=== PATIENT | male | born 1950 | race Hispanic/Latino ===

== ENCOUNTER 2022-07-18 12:01 | Inpatient (IN) | payer MEDICARE, OTHER ==
[2022-07-18] MEDS ORDERED: traZODone 50 MG TAB PO SCH (22:00)
[2022-07-18] MEDS: traMADol 50 MG TAB PO PRN (23:15)
[2022-07-19] MEDS ORDERED: NON-FORMULARY EACH (Albuterol Sulfate [Proair Digihaler] 90 MCG Aer.Pw.Bas) IH SCH (08:30)
[2022-07-19] MEDS ORDERED: [UNRECOGNIZED DRUG - OTHER] PO SCH (08:30)
[2022-07-19] MEDS ORDERED: IBUPROFEN PO SCH (08:30)
[2022-07-19] MEDS ORDERED: ACETAMINOPHEN PO SCH (08:30)
--- NOTE | 2022-07-19 08:34 | Consultation ---
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 The patient had stated that he took 5-6 Advil trying to kill himself because of the pain that he is having and was not acting accepting help from anybody. The had brought him to the hospital. Nursing staff reports to me that he had a recent urinary tract infection and was treated with Rocephin and then 7 days of Keflex. And that the patient had refused to allow them to get urine sample or blood sample for lab purposes today. I did discuss with the patient he continues to complain of difficulty with movement of his neck area due to pain. He denies any dysphagia or diet aphasia however my understanding is that he has had some type of odynophagia., He denies any fever nausea vomiting at this time Past History Past Medical History: CAD, cancer (Prostate laryngeal), COPD, hypertension, hyperlipidemia, renal failure, other (Hypoalbuminemia) Past Surgical History: appendectomy, TURP, bowel surgery Social history: , full code Family history: no significant family history Medications and Allergies Allergies Allergy/AdvReac Type Severity Reaction Status Date / Time codeine Allergy Unknown Unverified 07/18/22 12:03 ketorolac [From Toradol] Allergy Unknown Unverified 07/18/22 12:03 Home Medications Medication Instructions Recorded Confirmed Last Taken Type Albuterol Sulfate [Proair 90 mcg IH Q4H 07/19/22 07/19/22 Unknown History Digihaler] Aspirin EC [Halfprin EC] 81 mg PO QDAY 07/19/22 07/19/22 Unknown History DULoxetine [Cymbalta] 60 mg PO QDAY 07/19/22 07/19/22 Unknown History Fluticasone/Umeclidin/Vilanter 1 each IH DAILY 07/19/22 07/19/22 Unknown History [Trelegy Ellipta 100-62.5-25] Ibuprofen/Acetaminophen [Advil 1 each PO UNK 07/19/22 07/19/22 Unknown History Dual Action 250Mg-125Mg] Ketoconazole 2% [Nizoral] 1 applicatio TP BID 07/19/22 07/19/22 Unknown History Metoprolol [Lopressor] 12.5 mg PO HS 07/19/22 07/19/22 Unknown History cephALEXin [Keflex] 500 mg PO Q6HR MDD for 8 days 07/19/22 07/19/22 07/18/22 13:51 History traMADoL [Ultram] 50 mg PO Q6HR PRN 07/19/22 07/19/22 Unknown History traZODone [Desyrel] 100 mg PO QHS 07/19/22 07/19/22 Unknown History Active Meds: Active Medications Aspirin (Aspirin Ec 81 Mg Tab) 81 mg PO QDAY [facility] Duloxetine HCl (Duloxetine 30 Mg Cap) 60 mg PO QDAY [facility] Ketoconazole (Ketoconazole 2% Cream 15 Gm) 1 applic TP BID [facility] Melatonin (Melatonin 5 Mg Tab) 5 mg PO QHS PRN PRN Reason: Sleep Metoprolol Tartrate (Metoprolol Tartrate 25 Mg Tab) 12.5 mg PO HS [facility] Miscellaneous Medication (Albuterol Sulfate [Proair Digihaler]) 90 mcg IH Q4H [facility] Miscellaneous Medication (Fluticasone/Umeclidin/Vilanter [Trelegy Ellipta 100-62.5-25]) 1 each IH DAILY [facility] Miscellaneous Medication (Ibuprofen/Acetaminophen [Advil Dual Action 250mg- 125mg]) 1 each PO UNK [facility] Tramadol HCl (Tramadol 50 Mg Tab) 50 mg PO Q6H PRN PRN Reason: Pain, Moderate (4-6) Last Admin: 07/18/22 23:15 Dose: 50 mg Trazodone HCl (Trazodone 50 Mg Tab) 50 mg PO QHS [facility] Last Admin: 07/18/22 23:15 Dose: 50 mg Trazodone HCl (Trazodone 50 Mg Tab) 100 mg PO QHS [facility] Review of Systems All systems: negative Constitutional: no fever, no chills, no sweats Ears, nose, mouth and throat: odynophagia Cardiovascular: no chest pain, no orthopnea, no palpitations, no edema, no syncope, no lightheadedness, no dyspnea on exertion Respiratory: no cough, no cough with sputum, no excessive sputum, no hemoptysis, no shortness of breath, no dyspnea on exertion, no wheezing, no pain, no pain on inspiration, no snoring Gastrointestinal: no abdominal pain, no nausea, no vomiting, no diarrhea, no constipation, no change in bowel habits, no melena, no early satiety Musculoskeletal: gait dysfunction, frequent falls, no neck stiffness, no low back pain, no leg numbness/tingling, no muscle cramps, no myalgias, no atrophy, no fractures, no loss of height Integumentary: no rash, no lesions, no acne, no hirsutism, no foot/leg ulcers Exam - Physical Exam Narrative exam: VITAL SIGNS: Reviewed. GENERAL: The patient appears normally developed, Vital signs as documented. HEAD: No signs of head trauma. EYES: Pupils are equal. Extraocular motions intact. EARS: Hearing grossly intact. MOUTH: Oropharynx is normal. NECK: No adenopathy, no JVD. CHEST: Chest with clear breath sounds bilaterally. No wheezes, rales, or rhonchi. CARDIAC: Regular rate and rhythm. S1 and S2, without murmurs, gallops, or rubs. VASCULAR: No Edema. Peripheral pulses normal and equal in all extremities. ABDOMEN: Soft, non tender and non distended. No rebound or guarding, and no masses palpated. Bowel Sounds normal. MUSCULOSKELETAL: Good range of motion of all major joints. Extremities without clubbing, cyanosis or edema. NEUROLOGIC EXAM: Alert and oriented x 3 No focal sensory or strength deficits. Speech normal. Follows commands. PSYCHIATRIC: Mood normal. SKIN: detail exam as documented in skin assessment - Constitutional Vitals: Temp Pulse Resp BP Pulse Ox 97.8 F 98 H 16 143/85 93 07/19/22 06:03 07/19/22 06:03 07/19/22 06:03 07/19/22 06:03 07/19/22 06:03 Assessment and Plan 72 year old male with hx prostrate and throat cancer with resultant chronic pain, COPD, [place] exposure, chronic hypoxic respiratory failure with intermittent oxygen use, gait abnormality uses a wheeled walker, CAD, PTSD and major depressive disorder who was admitted to our facility after initially presenting to an outside ER with report of suicidal ideation. The patient had stated that he took 5-6 Advil trying to kill himself because of the pain that he is having and was not acting accepting help from anybody. The had brought him to the hospital. Nursing staff reports to me that he had a recent urinary tract infection and was treated with Rocephin and then 7 days of Keflex. And that the patient had refused to allow them to get urine sample or blood sample for lab purposes today. I did discuss with the patient he continues to complain of difficulty with movement of his neck area due to pain. He denies any dysphagia or diet aphasia however my understanding is that he has had some type of odynophagia., He denies any fever nausea vomiting at this time Suicidal ideation Hypertension Odynophagia secondary to throat cancer Prostate cancer COPD Gait abnormality until seen by PT please use a wheelchair for him at this time. Chronic hypoxemia PTSD Major depression disorder Chronic pain syndrome [place] exposure Unilateral nephrectomy unsure which side Chronic pancreatitis Plan Will resume patient's medication Speech evaluation and treat PT OT evaluation and treat Pain control Monitor oxygen status periodically Intermittent labs Resume appropriate home medications monitor blood pressure control. Patient may benefit from Roxicodone liquid form for pain control if okay with the psych team. Thank you for allowing us take part in the care of your patient as an information become available more therapeutic or diagnostic recommendations may be presented. DVT and GI prophylaxis
[2022-07-19] MEDS: ASPIRIN EC 81 MG TAB PO SCH (09:59)
[2022-07-19] MEDS: traMADol 50 MG TAB PO PRN ×2 (09:59→20:05)
[2022-07-19] MEDS ORDERED: DULoxetine 30 MG CAP PO SCH (10:00)
[2022-07-19] MEDS ORDERED: NON-FORMULARY EACH (Fluticasone/Umeclidin/Vilanter [Trelegy Ellipta 100-62.5-25] 1 EACH Bl IH SCH (10:00)
--- NOTE | 2022-07-19 10:15 | History and Physical Report ---
GP History & Physical - History of Present Illness Date of admission: 07/18/22 Date of Examination: 07/19/22 Reason for Admission: Danger to self, Failure of Outpatient Treatment, Severe anxiety/depression History of Present Illness: The patient is a 72y/o male with hx of prostrate and throat cancer, chronic pain, COPD, [place] exposure, chronic hypoxic respiratory failure with intermittent oxygen use, PTSD and Bipolar Disorder. He was admitted to [facility] after his took pt to ER for suicide ideation by OD on 5-6 tablets of Advil and another bottle in reach with intent to take. During my evaluation of the patient he is calm and cooperative. The patient understands that he was admitted for suicidal thoughts, but he denies at present. He says "I have throat cancer so I thought I'd just do away with it all together." The patient does verbalize being depressed. He says he has a history of Bipolar Disorder, and at one point was taking thorazine. He says he "doesn't take any of it now, just THC." The patient denies any other illicit drug use or alcohol use. He denies hallucinations of any kind. The patient says he is with good family support. PAST PSYCHIATRIC HISTORY: Diagnoses: Bipolar Suicide attempts or Self-harm behavior: Denies Prior psychiatric hospitalizations: Denies Substance Abuse history: Denies Previous psychiatric medications tried: Thorazine Outpatient treatment: Denies PAST MEDICAL HISTORY: prostrate and throat cancer, chronic pain, COPD, [place] exposure, chronic hypoxic respiratory failure with intermittent oxygen use Family Psychiatric History: None reported or documented SOCIAL HISTORY Marital Status: Living Arrangements: lives with Spouse Employment Status: Disabled Access to guns/weapons: Denies Education: History of Abuse: Denies Legal History: Denies REVIEW OF SYSTEMS Constitutional: Negative for weight loss ENT: Negative for stridor Respiratory: Negative for cough or hemoptysis All other systems reviewed and are negative MENTAL STATUS EXAMINATION General Appearance and Behavior: Age appropriate, wearing appropriate clothes, cooperative, calm Cooperation: cooperative Psychomotor Behavior: Psychomotor normal Mood: Depressed Affect and affective range: congruent with stated affect Thought Process: goal directed Thought Content: Within reality Speech: Normal volume, Regular rate and rhythm Suicidal Ideation: Denies Homicidal Ideation: Denies Hallucination: Denies Delusions: Denies Impulse Control: Limited Insight and Judgment: Limited Memory: Limited Attention: Attentive Orientation: a/o Diagnoses: Bipolar Disorder Treatment Plan Patient admitted for inpatient psychiatric evaluation, medication adjustment and close monitoring The patient's behavior, mood, sleep and appetite will be closely monitored. Patient enrolled in individual and group therapeutic sessions and encouraged to attend. Patient provided with a safe and structured environment. Patient's physical health needs will be addressed by the Hospitalist. Hospitalist Consulted Labs including CBC, CMP, Lipid profile and Hemoglobin A1C levels ordered for baseline reference Social Assessment will be completed and the Artificial Log Machine Operator will work with patient and family to ensure a suitable and safe disposition Medication adjustment will be made as clinically indicated Continued home medications Usual Wellness Yarsanism/Preservation: - Start Trazodone 50 mg po QHS & 50 mg po QHS PRN between 10 PM & 2 AM for insomnia - Start Melatonin 5 mg po QHS to promote circadian rhythm The patient agreed on the treatment plan, understood the risk, benefit, alternative treatment, potential consequence of no treatment, and gave informed consent. Estimated days: 7 Post hospital care: primary care provider, psychiatric provider Case staffed with Dr. Olmos Legal Status: Voluntary Reaction to Hospitalization: Accepting Medications and Allergies Allergies Allergy/AdvReac Type Severity Reaction Status Date / Time codeine Allergy Unknown Unverified 07/18/22 12:03 ketorolac [From Toradol] Allergy Unknown Unverified 07/18/22 12:03 Home Medications Medication Instructions Recorded Confirmed Last Taken Type Albuterol Sulfate [Proair 90 mcg IH Q4H 07/19/22 07/19/22 Unknown History Digihaler] Aspirin EC [Halfprin EC] 81 mg PO QDAY 07/19/22 07/19/22 Unknown History DULoxetine [Cymbalta] 60 mg PO QDAY 07/19/22 07/19/22 Unknown History Fluticasone/Umeclidin/Vilanter 1 each IH DAILY 07/19/22 07/19/22 Unknown History [Trelegy Ellipta 100-62.5-25] Ibuprofen/Acetaminophen [Advil 1 each PO UNK 07/19/22 07/19/22 Unknown History Dual Action 250Mg-125Mg] Ketoconazole 2% [Nizoral] 1 applicatio TP BID 07/19/22 07/19/22 Unknown History Metoprolol [Lopressor] 12.5 mg PO HS 07/19/22 07/19/22 Unknown History cephALEXin [Keflex] 500 mg PO Q6HR MDD for 8 days 07/19/22 07/19/22 07/18/22 13:51 History traMADoL [Ultram] 50 mg PO Q6HR PRN 07/19/22 07/19/22 Unknown History traZODone [Desyrel] 100 mg PO QHS 07/19/22 07/19/22 Unknown History Active Meds: Active Medications Aspirin (Aspirin Ec 81 Mg Tab) 81 mg PO QDAY [facility] Last Admin: 07/19/22 09:59 Dose: 81 mg Duloxetine HCl (Duloxetine 30 Mg Cap) 60 mg PO QDAY [facility] Last Admin: 07/19/22 09:59 Dose: 60 mg Ketoconazole (Ketoconazole 2% Cream 15 Gm) 1 applic TP BID [facility] Melatonin (Melatonin 5 Mg Tab) 5 mg PO QHS PRN PRN Reason: Sleep Metoprolol Tartrate (Metoprolol Tartrate 25 Mg Tab) 12.5 mg PO HS [facility] Miscellaneous Medication (Albuterol Sulfate [Proair Digihaler]) 90 mcg IH Q4H [facility] Miscellaneous Medication (Fluticasone/Umeclidin/Vilanter [Trelegy Ellipta 100-62.5-25]) 1 each IH DAILY [facility] Tramadol HCl (Tramadol 50 Mg Tab) 50 mg PO Q6H PRN PRN Reason: Pain, Moderate (4-6) Last Admin: 07/19/22 09:59 Dose: 50 mg Trazodone HCl (Trazodone 50 Mg Tab) 100 mg PO QHS [facility] Results - Results Labs/Vitals: Last Vital Signs Temp 97.8 F 07/19/22 06:03 Pulse 98 H 07/19/22 06:03 Resp 16 07/19/22 06:03 BP 143/85 07/19/22 06:03 Pulse Ox 93 07/19/22 06:03 Physical Examination - Constitutional Vitals: Vital Signs Temp Pulse Resp BP Pulse Ox 97.8 F 98 H 16 143/85 93 07/19/22 06:03 07/19/22 06:03 07/19/22 06:03 07/19/22 06:03 07/19/22 06:03 Temperature -Last 24 Hours Temperature 97.8 F Mental Status Exam - Vital signs Last Vital Signs Temp 97.8 F 07/19/22 06:03 Pulse 98 H 07/19/22 06:03 Resp 16 07/19/22 06:03 BP 143/85 07/19/22 06:03 Pulse Ox 93 07/19/22 06:03 Physician Certification - Certification Statement Physician Certification Statement: This is an acknowledgement statement that AUDREY CHAVEZ is a 72 year old M who requires inpatient psychiatric admission for treatment which could reasonably be expected to improve the patient's condition for Estimated period of time patient will need to remain in the hospital: [ ] Plan for post-hospital care: [ ]
[2022-07-19] MEDS ORDERED: ALBUTEROL 8.5 GM MDI INHALATION IH SCH (11:00)
[2022-07-19] MEDS: KETOCONAZOLE 2% CREAM 15 GM TP SCH ×2 (15:03→21:18)
[2022-07-19] MEDS: ALBUTEROL 2.5 MG/3 ML NEBU IH SCH ×2 (21:00→21:01)
[2022-07-19] MEDS: traZODone 50 MG TAB PO SCH (21:14)
[2022-07-19] MEDS ORDERED: METOPROLOL TARTRATE 25 MG TAB PO SCH (22:00)
[2022-07-20] MEDS: traMADol 50 MG TAB PO PRN ×3 (06:23→20:59)
[2022-07-20] MEDS: ALBUTEROL 2.5 MG/3 ML NEBU IH SCH ×4 (06:23→20:35)
--- NOTE | 2022-07-20 09:40 | Progress Note ---
Subjective Date of service: 07/20/22 Principal diagnosis: Bipolar Disorder Subjective Comment: The patient was seen today. He says he is not doing good because he's in a lot of pain. The patient denies SI/HI or hallucinations. The patient says he no longer feels like ending his life, but does endorse depression. REVIEW OF SYSTEMS Constitutional: Negative for weight loss ENT: Negative for stridor Respiratory: Negative for cough or hemoptysis All other systems reviewed and are negative MENTAL STATUS EXAMINATION General Appearance and Behavior: Age appropriate, wearing appropriate clothes, cooperative, calm Cooperation: cooperative Psychomotor Behavior: Psychomotor normal Mood: Depressed Affect and affective range: congruent with stated affect Thought Process: goal directed Thought Content: Within reality Speech: Normal volume, Regular rate and rhythm Suicidal Ideation: Denies Homicidal Ideation: Denies Hallucination: Denies Delusions: Denies Impulse Control: Limited Insight and Judgment: Limited Memory: Limited Attention: Attentive Orientation: a/o Diagnoses: Bipolar Disorder Treatment Plan Patient admitted for inpatient psychiatric evaluation, medication adjustment and close monitoring The patient's behavior, mood, sleep and appetite will be closely monitored. Patient enrolled in individual and group therapeutic sessions and encouraged to attend. Patient provided with a safe and structured environment. Patient's physical health needs will be addressed by the Hospitalist. Hospitalist Consulted Labs including CBC, CMP, Lipid profile and Hemoglobin A1C levels ordered for baseline reference Social Assessment will be completed and the Poultry Hatchery Man will work with patient and family to ensure a suitable and safe disposition Medication adjustment will be made as clinically indicated Increase Cymbalta 120mgpo daily Increase Tramadol 100mg po q6h prn pain Start Tylenol 650mg po q4h prn pain Usual Wellness Worship/Preservation: - Start Trazodone 50 mg po QHS & 50 mg po QHS PRN between 10 PM & 2 AM for insomnia - Start Melatonin 5 mg po QHS to promote circadian rhythm The patient agreed on the treatment plan, understood the risk, benefit, alternative treatment, potential consequence of no treatment, and gave informed consent. Estimated days: 7 Post hospital care: primary care provider, psychiatric provider Case staffed with Dr. Olmos Medications and Allergies Allergies Allergy/AdvReac Type Severity Reaction Status Date / Time codeine Allergy Unknown Unverified 07/18/22 12:03 ketorolac [From Toradol] Allergy Unknown Unverified 07/18/22 12:03 Home Medications Medication Instructions Recorded Confirmed Last Taken Type Albuterol Sulfate [Proair 90 mcg IH Q4H 07/19/22 07/19/22 Unknown History Digihaler] Aspirin EC [Halfprin EC] 81 mg PO QDAY 07/19/22 07/19/22 Unknown History DULoxetine [Cymbalta] 60 mg PO QDAY 07/19/22 07/19/22 Unknown History Fluticasone/Umeclidin/Vilanter 1 each IH DAILY 07/19/22 07/19/22 Unknown History [Trelegy Ellipta 100-62.5-25] Ibuprofen/Acetaminophen [Advil 1 each PO UNK 07/19/22 07/19/22 Unknown History Dual Action 250Mg-125Mg] Ketoconazole 2% [Nizoral] 1 applicatio TP BID 07/19/22 07/19/22 Unknown History Metoprolol [Lopressor] 12.5 mg PO HS 07/19/22 07/19/22 Unknown History cephALEXin [Keflex] 500 mg PO Q6HR MDD for 8 days 07/19/22 07/19/22 07/18/22 13:51 History traMADoL [Ultram] 50 mg PO Q6HR PRN 07/19/22 07/19/22 Unknown History traZODone [Desyrel] 100 mg PO QHS 07/19/22 07/19/22 Unknown History Active Meds: Active Medications Albuterol (Albuterol 2.5 Mg/3 Ml Nebu) 2.5 mg IH TIDRT [facility] Aspirin (Aspirin Ec 81 Mg Tab) 81 mg PO QDAY [facility] Last Admin: 07/19/22 09:59 Dose: 81 mg Duloxetine HCl (Duloxetine 30 Mg Cap) 60 mg PO QDAY [facility] Last Admin: 07/19/22 09:59 Dose: 60 mg Ketoconazole (Ketoconazole 2% Cream 15 Gm) 1 applic TP BID [facility] Last Admin: 07/19/22 21:18 Dose: 1 applic Melatonin (Melatonin 5 Mg Tab) 5 mg PO QHS PRN PRN Reason: Sleep Metoprolol Tartrate (Metoprolol Tartrate 25 Mg Tab) 25 mg PO BID [facility] Miscellaneous Medication (Fluticasone/Umeclidin/Vilanter [Trelegy Ellipta 100-62.5-25]) 1 each IH DAILY [facility] Tramadol HCl (Tramadol 50 Mg Tab) 50 mg PO Q6H PRN PRN Reason: Pain, Moderate (4-6) Last Admin: 07/20/22 06:23 Dose: 50 mg Trazodone HCl (Trazodone 50 Mg Tab) 100 mg PO QHS [facility] Last Admin: 07/19/22 21:14 Dose: 100 mg Results - Results Labs/Vitals: Last Vital Signs Temp 99.3 F 07/19/22 22:00 Pulse 120 H 07/19/22 22:00 Resp 18 07/20/22 06:23 BP 161/87 07/19/22 22:00 Pulse Ox 98 07/20/22 00:00
[2022-07-20] MEDS ORDERED: ACETAMINOPHEN 325 MG TAB PO PRN (10:00)
--- NOTE | 2022-07-20 10:04 | Progress Note ---
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 The patient had stated that he took 5-6 Advil trying to kill himself because of the pain that he is having and was not acting accepting help from anybody. The had brought him to the hospital. Nursing staff reports to me that he had a recent urinary tract infection and was treated with Rocephin and then 7 days of Keflex. And th at the patient had refused to allow them to get urine sample or blood sample for lab purposes today. I did discuss with the patient he continues to complain of difficulty with movement of his neck area due to pain. He denies any dysphagia or diet aphasia however my understanding is that he has had some type of odynophagia., He denies any fever nausea vomiting at this time Suicidal ideation Hypertension Odynophagia secondary to throat cancer Prostate cancer COPD Gait abnormality until seen by PT please use a wheelchair for him at this time. 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 Will increase metoprolol to 25 mg p.o. twice daily. Will resume patient's medication Speech evaluation and treat PT OT evaluation and treat Pain control Monitor oxygen status periodically Intermittent labs Resume appropriate home medications monitor blood pressure control. Patient may benefit from Roxicodone liquid form for pain control if okay with the psych team. Thank you for allowing us take part in the care of your patient as an information become available more therapeutic or diagnostic recommendations may be presented. DVT and GI prophylaxis History Interval history: Patient seen and examined no new complaints at this time. Hospitalist Physical - Physical exam Narrative exam: VITAL SIGNS: Reviewed. GENERAL: The patient appears normally developed, Vital signs as documented. HEAD: No signs of head trauma. EYES: Pupils are equal. Extraocular motions intact. EARS: Hearing grossly intact. MOUTH: Oropharynx is normal. NECK: No adenopathy, no JVD. CHEST: Chest with clear breath sounds bilaterally. No wheezes, rales, or rhonchi. CARDIAC: Regular rate and rhythm. S1 and S2, without murmurs, gallops, or rubs. VASCULAR: No Edema. Peripheral pulses normal and equal in all extremities. ABDOMEN: Soft, non tender and non distended. No rebound or guarding, and no masses palpated. Bowel Sounds normal. MUSCULOSKELETAL: Good range of motion of all major joints. Extremities without clubbing, cyanosis or edema. NEUROLOGIC EXAM: Alert and oriented x 3 No focal sensory or strength deficits. Speech normal. Follows commands. PSYCHIATRIC: Mood normal. SKIN: detail exam as documented in skin assessment - Constitutional Vitals: Temp Pulse Resp BP Pulse Ox 99.3 F 120 H 18 161/87 98 07/19/22 22:00 07/19/22 22:00 07/20/22 06:23 07/19/22 22:00 07/20/22 00:00 Results Ramirez/IV: Voiding Method Toilet Active Medications - Current Medications Current Medications: Generic Name Dose Route Start Last Admin Trade Name Freq PRN Reason Stop Dose Admin Acetaminophen 650 mg 07/20/22 10:00 Acetaminophen 325 Mg Tab PO Q4H PRN Pain, Mild (1-3) Albuterol 2.5 mg 07/20/22 08:00 Albuterol 2.5 Mg/3 Ml Nebu IH TIDRT [facility] Aspirin 81 mg 07/19/22 10:00 07/19/22 09:59 Aspirin Ec 81 Mg Tab PO 81 mg QDAY [facility] Administration Duloxetine HCl 120 mg 07/20/22 10:00 Duloxetine 30 Mg Cap PO QDAY [facility] Ketoconazole 1 applic 07/19/22 10:00 07/19/22 21:18 Ketoconazole 2% Cream 15 Gm TP 1 applic BID [facility] Administration Melatonin 5 mg 07/18/22 22:00 Melatonin 5 Mg Tab PO QHS PRN Sleep Metoprolol Tartrate 25 mg 07/20/22 10:00 Metoprolol Tartrate 25 Mg Tab PO BID [facility] Miscellaneous Medication 1 each 07/19/22 10:00 Fluticasone/Umeclidin/Vilanter [Trelegy Ellipta 100-62.5-25] IH DAILY [facility] Tramadol HCl 100 mg 07/20/22 10:00 Tramadol 50 Mg Tab PO Q6H PRN Pain, Moderate (4-6) Trazodone HCl 100 mg 07/19/22 22:00 07/19/22 21:14 Trazodone 50 Mg Tab PO 100 mg QHS [facility] Administration
[2022-07-20] MEDS: ASPIRIN EC 81 MG TAB PO SCH (10:36)
[2022-07-20] MEDS: DULoxetine 30 MG CAP PO SCH (10:37)
[2022-07-20] MEDS: KETOCONAZOLE 2% CREAM 15 GM TP SCH ×2 (10:38→21:01)
[2022-07-20] MEDS: METOPROLOL TARTRATE 25 MG TAB PO SCH ×2 (10:38→21:01)
[2022-07-20] MEDS: cephALEXin 500 MG CAP PO SCH ×2 (14:28→18:20)
[2022-07-20] MEDS: traZODone 50 MG TAB PO SCH (21:00)
[2022-07-20] MEDS: cephALEXin 250 MG CAP PO SCH (23:31)
[2022-07-21] MEDS: cephALEXin 250 MG CAP PO SCH ×4 (05:41→23:39)
[2022-07-21] MEDS: DULoxetine 30 MG CAP PO SCH (09:29)
[2022-07-21] MEDS: ASPIRIN EC 81 MG TAB PO SCH (09:29)
[2022-07-21] MEDS: METOPROLOL TARTRATE 25 MG TAB PO SCH ×2 (09:29→21:05)
[2022-07-21] MEDS: KETOCONAZOLE 2% CREAM 15 GM TP SCH ×3 (09:30→21:34)
[2022-07-21] MEDS: ALBUTEROL 2.5 MG/3 ML NEBU IH SCH ×3 (09:47→23:15)
--- NOTE | 2022-07-21 11:00 | Progress Note ---
Subjective Date of service: 07/21/22 Principal diagnosis: Bipolar Disorder Subjective Comment: The patient was seen today. He says he is dong better and ready to go home. The patent denies SI/HI, but was admitted for an OD in an attempt to end his life. He denies hallucinations. Will continue to treat and monitor REVIEW OF SYSTEMS Constitutional: Negative for weight loss ENT: Negative for stridor Respiratory: Negative for cough or hemoptysis All other systems reviewed and are negative MENTAL STATUS EXAMINATION General Appearance and Behavior: Age appropriate, wearing appropriate clothes, cooperative, calm Cooperation: cooperative Psychomotor Behavior: Psychomotor normal Mood: Depressed Affect and affective range: congruent with stated affect Thought Process: goal directed Thought Content: Within reality Speech: Normal volume, Regular rate and rhythm Suicidal Ideation: Denies Homicidal Ideation: Denies Hallucination: Denies Delusions: Denies Impulse Control: Limited Insight and Judgment: Limited Memory: Limited Attention: Attentive Orientation: a/o Diagnoses: Bipolar Disorder Treatment Plan Patient admitted for inpatient psychiatric evaluation, medication adjustment a nd close monitoring The patient's behavior, mood, sleep and appetite will be closely monitored. Patient enrolled in individual and group therapeutic sessions and encouraged to attend. Patient provided with a safe and structured environment. Patient's physical health needs will be addressed by the Hospitalist. Hospitalist Consulted Labs including CBC, CMP, Lipid profile and Hemoglobin A1C levels ordered for baseline reference Social Assessment will be completed and the Vacuum Bottle Assembler will work with patient and family to ensure a suitable and safe disposition Medication adjustment will be made as clinically indicated Cymbalta 120mgpo daily Usual Wellness [facility]/Preservation: - Start Trazodone 50 mg po QHS & 50 mg po QHS PRN between 10 PM & 2 AM for ins omnia - Start Melatonin 5 mg po QHS to promote circadian rhythm The patient agreed on the treatment plan, understood the risk, benefit, alternative treatment, potential consequence of no treatment, and gave informed consent. Estimated days: 7 Post hospital care: primary care provider, psychiatric provider Case staffed with Dr. Olmos Medications and Allergies Allergies Allergy/AdvReac Type Severity Reaction Status Date / Time codeine Allergy Unknown Unverified 07/18/22 12:03 ketorolac [From Toradol] Allergy Unknown Unverified 07/18/22 12:03 Home Medications Medication Instructions Recorded Confirmed Last Taken Type Albuterol Sulfate [Proair 90 mcg IH Q4H 07/19/22 07/19/22 Unknown History Digihaler] Aspirin EC [Halfprin EC] 81 mg PO QDAY 07/19/22 07/19/22 Unknown History DULoxetine [Cymbalta] 60 mg PO QDAY 07/19/22 07/19/22 Unknown History Fluticasone/Umeclidin/Vilanter 1 each IH DAILY 07/19/22 07/19/22 Unknown History [Trelegy Ellipta 100-62.5-25] Ibuprofen/Acetaminophen [Advil 1 each PO UNK 07/19/22 07/19/22 Unknown History Dual Action 250Mg-125Mg] Ketoconazole 2% [Nizoral] 1 applicatio TP BID 07/19/22 07/19/22 Unknown History Metoprolol [Lopressor] 12.5 mg PO HS 07/19/22 07/19/22 Unknown History cephALEXin [Keflex] 500 mg PO Q6HR MDD for 8 days 07/19/22 07/19/22 07/18/22 13:51 History traMADoL [Ultram] 50 mg PO Q6HR PRN 07/19/22 07/19/22 Unknown History traZODone [Desyrel] 100 mg PO QHS 07/19/22 07/19/22 Unknown History Active Meds: Active Medications Acetaminophen (Acetaminophen 325 Mg Tab) 650 mg PO Q4H PRN PRN Reason: Pain, Mild (1-3) Albuterol (Albuterol 2.5 Mg/3 Ml Nebu) 2.5 mg IH TIDRT [facility] Last Admin: 07/21/22 09:47 Dose: Not Given Aspirin (Aspirin Ec 81 Mg Tab) 81 mg PO QDAY [facility] Last Admin: 07/21/22 09:29 Dose: 81 mg Cephalexin (Cephalexin 250 Mg Cap) 500 mg PO Q6HR [facility] Stop: 07/27/22 18:01 Last Admin: 07/21/22 05:41 Dose: 500 mg Duloxetine HCl (Duloxetine 30 Mg Cap) 120 mg PO QDAY [facility] Last Admin: 07/21/22 09:29 Dose: 120 mg Ketoconazole (Ketoconazole 2% Cream 15 Gm) 1 applic TP BID [facility] Last Admin: 07/21/22 09:30 Dose: 1 applic Melatonin (Melatonin 5 Mg Tab) 5 mg PO QHS PRN PRN Reason: Sleep Metoprolol Tartrate (Metoprolol Tartrate 25 Mg Tab) 25 mg PO BID [facility] Last Admin: 07/21/22 09:29 Dose: 25 mg Miscellaneous Medication (Fluticasone/Umeclidin/Vilanter [Trelegy Ellipta 100-62.5-25]) 1 each IH DAILY [facility] Tramadol HCl (Tramadol 50 Mg Tab) 100 mg PO Q6H PRN PRN Reason: Pain, Moderate (4-6) Last Admin: 07/20/22 20:59 Dose: 100 mg Trazodone HCl (Trazodone 50 Mg Tab) 100 mg PO QHS [facility] Last Admin: 07/20/22 21:00 Dose: 100 mg Results - Results Labs/Vitals: Laboratory Last Values POC Glucose 202 mg/dL (70-105) H 07/20/22 17:08 Last Vital Signs Temp 98.5 F 07/21/22 06:19 Pulse 89 07/21/22 09:29 Resp 17 07/21/22 06:19 BP 121/67 07/21/22 09:29 Pulse Ox 94 07/21/22 09:28
[2022-07-21] MEDS: traZODone 50 MG TAB PO SCH (21:05)
[2022-07-21] MEDS: traMADol 50 MG TAB PO PRN (21:29)
[2022-07-22] MEDS: MELATONIN 5 MG TAB PO PRN (01:13)
[2022-07-22] MEDS: cephALEXin 250 MG CAP PO SCH ×3 (05:19→17:10)
[2022-07-22] MEDS: ALBUTEROL 2.5 MG/3 ML NEBU IH SCH ×2 (09:01→14:27)
[2022-07-22] MEDS: METOPROLOL TARTRATE 25 MG TAB PO SCH ×2 (09:17→21:23)
[2022-07-22] MEDS: KETOCONAZOLE 2% CREAM 15 GM TP SCH ×2 (09:17→21:23)
[2022-07-22] MEDS: ASPIRIN EC 81 MG TAB PO SCH (09:17)
[2022-07-22] MEDS: DULoxetine 30 MG CAP PO SCH (09:17)
--- NOTE | 2022-07-22 11:37 | Progress Note ---
Subjective Date of service: 07/22/22 Principal diagnosis: Bipolar Disorder Subjective Comment: The patient was seen today. He is in his room. He says he feels "great today." He denies SI/HHI or hallucinations. The patient will go home tomorrow once the social work nurse has his outpatient resources in place, if uneventful night Will continue to treat and monitor REVIEW OF SYSTEMS Constitutional: Negative for weight loss ENT: Negative for stridor Respiratory: Negative for cough or hemoptysis All other systems reviewed and are negative MENTAL STATUS EXAMINATION General Appearance and Behavior: Age appropriate, wearing appropriate clothes, cooperative, calm Cooperation: cooperative Psychomotor Behavior: Psychomotor normal Mood: Depressed Affect and affective range: congruent with stated affect Thought Process: goal directed Thought Content: Within reality Speech: Normal volume, Regular rate and rhythm Suicidal Ideation: Denies Homicidal Ideation: Denies Hallucination: Denies Delusions: Denies Impulse Control: Limited Insight and Judgment: Limited Memory: Limited Attention: Attentive Orientation: a/o Diagnoses: Bipolar Disorder Treatment Plan Patient admitted for inpatient psychiatric evaluation, medication adjustment and close monitoring The patient's behavior, mood, sleep and appetite will be closely monitored. Patient enrolled in individual and group therapeutic sessions and encouraged to attend. Patient provided with a safe and structured environment. Patient's physical health needs will be addressed by the Hospitalist. Hospitalist Consulted Labs including CBC, CMP, Lipid profile and Hemoglobin A1C levels ordered for baseline reference Social Assessment will be completed and the Custody Officer will work with patient and family to ensure a suitable and safe disposition Medication adjustment will be made as clinically indicated Cymbalta 120mgpo daily Usual Wellness [facility]/Preservation: - Start Trazodone 50 mg po QHS & 50 mg po QHS PRN between 10 PM & 2 AM for insomnia - Start Melatonin 5 mg po QHS to promote circadian rhythm The patient agreed on the treatment plan, understood the risk, benefit, alternative treatment, potential consequence of no treatment, and gave informed consent. Estimated days: 7 Post hospital care: primary care provider, psychiatric provider Case staffed with Dr. Olmos Medications and Allergies Allergies Allergy/AdvReac Type Severity Reaction Status Date / Time codeine Allergy Unknown Unverified 07/18/22 12:03 ketorolac [From Toradol] Allergy Unknown Unverified 07/18/22 12:03 Home Medications Medication Instructions Recorded Confirmed Last Taken Type Albuterol Sulfate [Proair 90 mcg IH Q4H 07/19/22 07/19/22 Unknown History Digihaler] Aspirin EC [Halfprin EC] 81 mg PO QDAY 07/19/22 07/19/22 Unknown History DULoxetine [Cymbalta] 60 mg PO QDAY 07/19/22 07/19/22 Unknown History Fluticasone/Umeclidin/Vilanter 1 each IH DAILY 07/19/22 07/19/22 Unknown History [Trelegy Ellipta 100-62.5-25] Ibuprofen/Acetaminophen [Advil 1 each PO UNK 07/19/22 07/19/22 Unknown History Dual Action 250Mg-125Mg] Ketoconazole 2% [Nizoral] 1 applicatio TP BID 07/19/22 07/19/22 Unknown History Metoprolol [Lopressor] 12.5 mg PO HS 07/19/22 07/19/22 Unknown History cephALEXin [Keflex] 500 mg PO Q6HR MDD for 8 days 07/19/22 07/19/22 07/18/22 13:51 History traMADoL [Ultram] 50 mg PO Q6HR PRN 07/19/22 07/19/22 Unknown History traZODone [Desyrel] 100 mg PO QHS 07/19/22 07/19/22 Unknown History Active Meds: Active Medications Acetaminophen (Acetaminophen 325 Mg Tab) 650 mg PO Q4H PRN PRN Reason: Pain, Mild (1-3) Albuterol (Albuterol 2.5 Mg/3 Ml Nebu) 2.5 mg IH TIDRT [facility] Last Admin: 07/22/22 09:01 Dose: Not Given Aspirin (Aspirin Ec 81 Mg Tab) 81 mg PO QDAY [facility] Last Admin: 07/22/22 09:17 Dose: 81 mg Cephalexin (Cephalexin 250 Mg Cap) 500 mg PO Q6HR [facility] Stop: 07/27/22 18:01 Last Admin: 07/22/22 05:19 Dose: 500 mg Duloxetine HCl (Duloxetine 30 Mg Cap) 120 mg PO QDAY [facility] Last Admin: 07/22/22 09:17 Dose: 120 mg Ketoconazole (Ketoconazole 2% Cream 15 Gm) 1 applic TP BID [facility] Last Admin: 07/22/22 09:17 Dose: 1 applic Melatonin (Melatonin 5 Mg Tab) 5 mg PO QHS PRN PRN Reason: Sleep Last Admin: 07/22/22 01:13 Dose: 5 mg Metoprolol Tartrate (Metoprolol Tartrate 25 Mg Tab) 25 mg PO BID [facility] Last Admin: 07/22/22 09:17 Dose: 25 mg Miscellaneous Medication (Fluticasone/Umeclidin/Vilanter [Trelegy Ellipta 100-62.5-25]) 1 each IH DAILY [facility] Tramadol HCl (Tramadol 50 Mg Tab) 100 mg PO Q6H PRN PRN Reason: Pain, Moderate (4-6) Last Admin: 07/21/22 21:29 Dose: 100 mg Trazodone HCl (Trazodone 50 Mg Tab) 100 mg PO QHS [facility] Last Admin: 07/21/22 21:05 Dose: 100 mg Results - Results Labs/Vitals: Laboratory Last Values POC Glucose 130 mg/dL (70-105) H 07/22/22 06:39 Last Vital Signs Temp 98.2 F 07/22/22 05:39 Pulse 68 07/22/22 09:17 Resp 20 07/22/22 05:39 BP 127/59 07/22/22 09:17 Pulse Ox 94 07/22/22 05:39
[2022-07-22] MEDS: traZODone 50 MG TAB PO SCH (21:22)
[2022-07-22] MEDS: traMADol 50 MG TAB PO PRN (21:34)
[2022-07-23] MEDS: cephALEXin 250 MG CAP PO SCH ×5 (00:45→23:45)
[2022-07-23] MEDS: MELATONIN 5 MG TAB PO PRN (02:15)
[2022-07-23] MEDS: ALBUTEROL 2.5 MG/3 ML NEBU IH SCH ×4 (08:05→20:07)
[2022-07-23] MEDS: DULoxetine 30 MG CAP PO SCH (09:13)
[2022-07-23] MEDS: ASPIRIN EC 81 MG TAB PO SCH (09:13)
[2022-07-23] MEDS: METOPROLOL TARTRATE 25 MG TAB PO SCH ×2 (09:13→22:03)
[2022-07-23] MEDS: KETOCONAZOLE 2% CREAM 15 GM TP SCH ×2 (09:14→22:02)
--- NOTE | 2022-07-23 10:46 | Progress Note ---
Assessment and Plan - Patient Problems (1) Vascular dementia with behavioral disturbance Status: Acute Plan to address problem: Verbal prompting, verbal redirection, benzodiazepine therapy as clinical indicated (2) Cerebral atherosclerosis Status: Acute Plan to address problem: Risk factor reduction, antiplatelet therapy, supportive care (3) COPD (chronic obstructive pulmonary disease) Status: Acute Plan to address problem: No acute exacerbation at this time, continue medical management, supplemental oxygen as clinically indicated. History Interval history: 72 year old male with hx prostrate and throat cancer with resultant chronic pain, COPD, Agent Cotter exposure, chronic hypoxic respiratory failure with intermittent oxygen use, gait abnormality uses a wheeled walker, CAD, PTSD admitted [facility] for psychiatric stabilization. Patient seen and evaluated recreation room. No reported nursing events. Patient denies pain. Patient jenna at baseline level of cognition and function Hospitalist Physical - Constitutional Vitals: Temp Pulse Resp BP Pulse Ox 97.8 F 84 18 120/68 94 07/22/22 17:17 07/23/22 10:00 07/23/22 10:00 07/23/22 09:13 07/22/22 17:17 General appearance: Present: no acute distress - EENT Eyes: Present: PERRL ENT: hearing intact - Neck Neck: Present: supple - Respiratory Respiratory effort: normal Respiratory: bilateral: diminished - Cardiovascular Rhythm: regular Heart Sounds: Present: S1 & S2 - Extremities Extremities: no ischemia Peripheral Pulses: within normal limits - Abdominal General gastrointestinal: soft, non-tender, non-distended - Integumentary Integumentary: Present: clear, dry - Psychiatric Psychiatric: cooperative - Neurologic Neurologic: CNII-XII intact Results - Labs Labs: Laboratory Last Values POC Glucose 130 mg/dL (70-105) H 07/22/22 06:39 Ramirez/IV: Voiding Method Toilet Active Medications - Current Medications Current Medications: Generic Name Dose Route Start Last Admin Trade Name Freq PRN Reason Stop Dose Admin Acetaminophen 650 mg 07/20/22 10:00 Acetaminophen 325 Mg Tab PO Q4H PRN Pain, Mild (1-3) Albuterol 2.5 mg 07/20/22 08:00 07/23/22 10:05 Albuterol 2.5 Mg/3 Ml Nebu IH 2.5 mg TIDRT [facility] Administration Aspirin 81 mg 07/19/22 10:00 07/23/22 09:13 Aspirin Ec 81 Mg Tab PO 81 mg QDAY [facility] Administration Cephalexin 500 mg 07/21/22 00:00 07/23/22 06:28 Cephalexin 250 Mg Cap PO 07/27/22 18:01 500 mg Q6HR [facility] Administration Duloxetine HCl 120 mg 07/20/22 10:00 07/23/22 09:13 Duloxetine 30 Mg Cap PO 120 mg QDAY [facility] Administration Ketoconazole 1 applic 07/19/22 10:00 07/23/22 09:14 Ketoconazole 2% Cream 15 Gm TP 1 applic BID [facility]AN Administration Melatonin 5 mg 07/18/22 22:00 07/23/22 02:15 Melatonin 5 Mg Tab PO 5 mg QHS PRN Administration Sleep Metoprolol Tartrate 25 mg 07/20/22 10:00 07/23/22 09:13 Metoprolol Tartrate 25 Mg Tab PO 25 mg BID [facility] Administration Miscellaneous Medication 1 each 07/19/22 10:00 Fluticasone/Umeclidin/Vilanter [Trelegy Ellipta 100-62.5-25] IH DAILY [facility]AN Tramadol HCl 100 mg 07/20/22 10:00 07/22/22 21:34 Tramadol 50 Mg Tab PO 100 mg Q6H PRN Administration Pain, Moderate (4-6) Trazodone HCl 100 mg 07/19/22 22:00 07/22/22 21:22 Trazodone 50 Mg Tab PO 100 mg QHS [facility] Administration
--- NOTE | 2022-07-23 12:35 | Progress Note ---
Subjective Date of service: 07/23/22 Principal diagnosis: Bipolar Disorder Subjective Comment: The patient was seen today. He is in his room sleeping. He easily arouses. The patient says he feels "great." He denies SI/HI or hallucinations. The patient will discharge home tomorrow. The SW was unable to reach his today. REVIEW OF SYSTEMS Constitutional: Negative for weight loss ENT: Negative for stridor Respiratory: Negative for cough or hemoptysis All other systems reviewed and are negative MENTAL STATUS EXAMINATION General Appearance and Behavior: Age appropriate, wearing appropriate clothes, cooperative, calm Cooperation: cooperative Psychomotor Behavior: Psychomotor normal Mood: Depressed Affect and affective range: congruent with stated affect Thought Process: goal directed Thought Content: Within reality Speech: Normal volume, Regular rate and rhythm Suicidal Ideation: Denies Homicidal Ideation: Denies Hallucination: Denies Delusions: Denies Impulse Control: Limited Insight and Judgment: Limited Memory: Limited Attention: Attentive Orientation: a/o Diagnoses: Bipolar Disorder Treatment Plan Patient admitted for inpatient psychiatric evaluation, medication adjustment and close monitoring The patient's behavior, mood, sleep and appetite will be closely monitored. Patient enrolled in individual and group therapeutic sessions and encouraged to attend. Patient provided with a safe and structured environment. Patient's physical health needs will be addressed by the Hospitalist. Hospitalist Consulted Labs including CBC, CMP, Lipid profile and Hemoglobin A1C levels ordered for baseline reference Social Assessment will be completed and the Senior Staff Accountant will work with patient and family to ensure a suitable and safe disposition Medication adjustment will be made as clinically indicated Cymbalta 120mgpo daily Usual Wellness [facility]omin[facility]/Preservation: - Start Trazodone 50 mg po QHS & 50 mg po QHS PRN between 10 PM & 2 AM for insomnia - Start Melatonin 5 mg po QHS to promote circadian rhythm The patient agreed on the treatment plan, understood the risk, benefit, alternative treatment, potential consequence of no treatment, and gave informed consent. Estimated days: 7 Post hospital care: primary care provider, psychiatric provider Case staffed with Dr. Olmos Medications and Allergies Allergies Allergy/AdvReac Type Severity Reaction Status Date / Time codeine Allergy Unknown Unverified 07/18/22 12:03 ketorolac [From Toradol] Allergy Unknown Unverified 07/18/22 12:03 Home Medications Medication Instructions Recorded Confirmed Last Taken Type Albuterol Sulfate [Proair 90 mcg IH Q4H 07/19/22 07/19/22 Unknown History Digihaler] Aspirin EC [Halfprin EC] 81 mg PO QDAY 07/19/22 07/19/22 Unknown History DULoxetine [Cymbalta] 60 mg PO QDAY 07/19/22 07/19/22 Unknown History Fluticasone/Umeclidin/Vilanter 1 each IH DAILY 07/19/22 07/19/22 Unknown History [Trelegy Ellipta 100-62.5-25] Ibuprofen/Acetaminophen [Advil 1 each PO UNK 07/19/22 07/19/22 Unknown History Dual Action 250Mg-125Mg] Ketoconazole 2% [Nizoral] 1 applicatio TP BID 07/19/22 07/19/22 Unknown History Metoprolol [Lopressor] 12.5 mg PO HS 07/19/22 07/19/22 Unknown History cephALEXin [Keflex] 500 mg PO Q6HR MDD for 8 days 07/19/22 07/19/22 07/18/22 13:51 History traMADoL [Ultram] 50 mg PO Q6HR PRN 07/19/22 07/19/22 Unknown History traZODone [Desyrel] 100 mg PO QHS 07/19/22 07/19/22 Unknown History Active Meds: Active Medications Acetaminophen (Acetaminophen 325 Mg Tab) 650 mg PO Q4H PRN PRN Reason: Pain, Mild (1-3) Albuterol (Albuterol 2.5 Mg/3 Ml Nebu) 2.5 mg IH TIDRT [facility] Last Admin: 07/23/22 10:05 Dose: 2.5 mg Aspirin (Aspirin Ec 81 Mg Tab) 81 mg PO QDAY [facility] Last Admin: 07/23/22 09:13 Dose: 81 mg Cephalexin (Cephalexin 250 Mg Cap) 500 mg PO Q6HR [facility] Stop: 07/27/22 18:01 Last Admin: 07/23/22 06:28 Dose: 500 mg Duloxetine HCl (Duloxetine 30 Mg Cap) 120 mg PO QDAY [facility] Last Admin: 07/23/22 09:13 Dose: 120 mg Ketoconazole (Ketoconazole 2% Cream 15 Gm) 1 applic TP BID [facility] Last Admin: 07/23/22 09:14 Dose: 1 applic Melatonin (Melatonin 5 Mg Tab) 5 mg PO QHS PRN PRN Reason: Sleep Last Admin: 07/23/22 02:15 Dose: 5 mg Metoprolol Tartrate (Metoprolol Tartrate 25 Mg Tab) 25 mg PO BID [facility] Last Admin: 07/23/22 09:13 Dose: 25 mg Miscellaneous Medication (Fluticasone/Umeclidin/Vilanter [Trelegy Ellipta 100-62.5-25]) 1 each IH DAILY [facility] Tramadol HCl (Tramadol 50 Mg Tab) 100 mg PO Q6H PRN PRN Reason: Pain, Moderate (4-6) Last Admin: 07/22/22 21:34 Dose: 100 mg Trazodone HCl (Trazodone 50 Mg Tab) 100 mg PO QHS [facility] Last Admin: 07/22/22 21:22 Dose: 100 mg Results - Results Labs/Vitals: Laboratory Last Values POC Glucose 130 mg/dL (70-105) H 07/22/22 06:39 Last Vital Signs Temp 97.8 F 07/22/22 17:17 Pulse 84 07/23/22 10:00 Resp 18 07/23/22 10:00 BP 120/68 07/23/22 09:13 Pulse Ox 94 07/22/22 17:17
[2022-07-23] MEDS: traMADol 50 MG TAB PO PRN ×2 (14:45→22:09)
[2022-07-23] MEDS: traZODone 50 MG TAB PO SCH (22:03)
[2022-07-24] MEDS: cephALEXin 250 MG CAP PO SCH (05:40)
[2022-07-24 08:49] VITALS: BP 119/61
[2022-07-24] MEDS: ALBUTEROL 2.5 MG/3 ML NEBU IH SCH (08:50)
[2022-07-24] MEDS: METOPROLOL TARTRATE 25 MG TAB PO SCH (09:00)
[2022-07-24] MEDS: ASPIRIN EC 81 MG TAB PO SCH (09:00)
[2022-07-24] MEDS: KETOCONAZOLE 2% CREAM 15 GM TP SCH (09:00)
[2022-07-24] MEDS: DULoxetine 30 MG CAP PO SCH (09:00)
--- NOTE | 2022-07-24 11:08 | Discharge Summary ---
Providers - Providers Date of Admission: 07/18/22 22:29 Date of discharge: 07/24/22 Attending physician: LASHELL TRINH MD 07/18/22 15:14 Consult to Physician [CONS] Routine Comment: Consulting Provider: LIZZY FERREIRA Physician Instructions: Reason For Exam: manage medical conditions 07/19/22 08:42 Occupational Therapy Evaluate and Treat [CONS] Routine Comment: Reason For Exam: debility Physical Therapy Evaluation and Treat [CONS] Routine Comment: Reason For Exam: debility Speech Therapy Evaluation and Treat [CONS] Routine Reason For Exam: odynophagia Primary care physician: WEB EDITOR Hospitalization Reason for admission: SI Admitting Diagnosis: F33.1 - MAJOR DEPRESSIVE DISORDER, RECURRENT, MODERATE Condition: Stable Hospital course: The patient was provided inpatient psychiatric treatment with safe and supportive care, medication adjustment, adverse effect monitoring, medical evaluations, medical treatments, assessment and psycho-education. The patient's mood, cognition, behavior, moral support are improved and stabilized. St the time of discharge, the patient had no endangering behavior and no debilitating adverse effects. The patient agreed on potential consequences of no treatment and gave informed consent. Disposition: 01 HOME / SELF CARE / HOMELESS Time spent for discharge: 35 Allergies/Adverse Reactions: Allergies codeine Allergy (Verified 07/24/22 09:16) Unknown Gives him hives ketorolac [From Toradol] Allergy (Verified 07/24/22 09:16) Hives Vital Signs: Last Vital Signs Temp 98.6 F 07/24/22 07:00 Pulse 69 07/24/22 09:00 Resp 18 07/24/22 08:50 BP 119/61 07/24/22 09:00 Pulse Ox 93 07/24/22 07:00 Last Lab: Laboratory Last Values POC Glucose 130 mg/dL (70-105) H 07/22/22 06:39 Core Measure Documentation - Palliative Care Palliative Care/ Comfort Measures: Not Applicable - Core Measures Any of the following diagnoses?: none Exam - Constitutional Vitals: Temp Pulse Resp BP Pulse Ox 98.6 F 69 18 119/61 93 07/24/22 07:00 07/24/22 09:00 07/24/22 08:50 07/24/22 09:00 07/24/22 07:00 General appearance: Present: no acute distress - EENT Eyes: Present: PERRL, EOM intact ENT: hearing intact, clear oral mucosa - Neck Neck: Present: supple, normal ROM - Respiratory Respiratory effort: normal Plan Activity: advance as tolerated Weight Bearing Status: Weight Bear as Tolerated Care Plan Goals: Maintain good and stable mental health Plan of Treatment: The patient should be compliant with medications, not to use drugs, and not to drink alcohol. The patient understands that if suicidal ideas, homicidal ideas or any endangering feeling arise, the patient should seek assistance including, but not limited to crisis hotline, and emergency room. Assessment: Major Depressive Disorder Follow up with: PRIMARY CARE, [Primary Care Provider] - 7 Days Prescriptions: traZODone [Desyrel] 100 mg PO QHS #60 tablet Melatonin [Melatonin 5MG TAB] 5 mg PO QHS PRN #30 tablet PRN Reason: Sleep Duloxetine HCl [Cymbalta] 120 mg PO DAILY #60
== END 2022-07-24 09:16 | disposition home or self-care (01) | DRG 885 ==
LOC: 3A 12:01 → UNDOADMIN 12:01 → 5A 22:29
PROVIDERS: ADMIT Psychiatry & Neurology Psychiatry; ATTEND Psychiatry & Neurology Psychiatry
DX: F31.9 Bipolar disorder, unspecified (principal); R45.851 Suicidal ideations; F01.51 Vascular dementia, unspecified severity, with behavioral disturbance; J44.9 Chronic obstructive pulmonary disease, unspecified; I10 Essential (primary) hypertension; E78.5 Hyperlipidemia, unspecified; G89.4 Chronic pain syndrome; R13.10 Dysphagia, unspecified; I25.10 Atherosclerotic heart disease of native coronary artery without angina pectoris; F43.10 Post-traumatic stress disorder, unspecified; Z79.899 Other long term (current) drug therapy; Z90.49 Acquired absence of other specified parts of digestive tract; Z88.5 Allergy status to narcotic agent; Z88.6 Allergy status to analgesic agent; Z88.8 Allergy status to other drugs, medicaments and biological substances; Z85.46 Personal history of malignant neoplasm of prostate; Z85.118 Personal history of other malignant neoplasm of bronchus and lung
CPT/HCPCS: 82962; 94640; G0378